=== PATIENT | female | born 1940 | race African-American/Black ===

== ENCOUNTER 2017-05-06 07:54 | Emergency (ER) | payer OTHER ==
[~2017-05-06] VITALS: Ht 160 cm; Wt 62.8 kg
[2017-05-06 08:58] VITALS: BP 134/94
== END 2017-05-06 08:58 | disposition home or self-care (01) ==
LOC: ED 07:54
DX: N39.0 Urinary tract infection, site not specified (principal); R51 Headache; I10 Essential (primary) hypertension; E03.9 Hypothyroidism, unspecified

== ENCOUNTER 2017-07-13 10:34 | Emergency (ER) | payer OTHER, BC ==
[~2017-07-13] VITALS: Ht 160 cm; Wt 59.1 kg
[2017-07-13 12:45] VITALS: BP 155/75
== END 2017-07-13 12:46 | disposition home or self-care (01) ==
LOC: ED 10:34
DX: T63.441A Toxic effect of venom of bees, accidental (unintentional), initial encounter (principal); I10 Essential (primary) hypertension; E03.9 Hypothyroidism, unspecified; Z90.89 Acquired absence of other organs; Z90.710 Acquired absence of both cervix and uterus; Y92.89 Other specified places as the place of occurrence of the external cause